=== PATIENT | female | born 1975 | race Caucasian/White ===

== ENCOUNTER → 2023-11-14 | Outpatient (CLI) | payer OTHER | LOC: MC.RAD 10:05 | DX: Z12.31 Encounter for screening mammogram for malignant neoplasm of breast (principal); N63.20 Unspecified lump in the left breast, unspecified quadrant ==

== ENCOUNTER → 2023-11-16 | Outpatient (CLI) | payer OTHER | LOC: MC.RAD 09:58 | DX: N63.20 Unspecified lump in the left breast, unspecified quadrant (principal) ==